=== PATIENT | female | born 1955 | race Caucasian/White ===

== ENCOUNTER 2018-06-23 13:28 | Inpatient (IN) | payer OTHER ==
[~2018-06-23] VITALS: Ht 165.1 cm; Wt 56.0 kg
[2018-06-23 14:30] VITALS: BP 157/64
[2018-06-23] MEDS ORDERED: ASPIRIN325 M2 PO (15:11)
[2018-06-23] MEDS ORDERED: PRINIVIL10 MG PO (15:11)
[2018-06-23] MEDS ORDERED: PROPRANOLOL HCL10 MG PO (15:13)
[2018-06-23] MEDS ORDERED: BUPROPION HYDR150 M5 PO (15:14)
[2018-06-23 15:15] VITALS: BP 157/64
[2018-06-23] MEDS ORDERED: CILOSTAZOL100 MG PO (15:15)
--- NOTE | 2018-06-23 15:15 | NUR ---
A 63, admitted to 5E, under the services of ROGELIO Pierson DO with a diagnosis of Alcohol Withdrawal. Chief complaint is Substance Abuse. Patient arrived via ambulatory from [place]. Monitor applied. Initial assessment completed. Vital signs taken and recorded. ROGELIO PIERSON DO notified of admission to the unit. Orders received. See assessment for past medical history, medications and allergies. Patient and/or family oriented to unit. [address] visitation policy reviewed. Clothing/patient valuable form completed. COLT DAWSON
[2018-06-23] MEDS ORDERED: VITAMIN D33000 UNIT PO (15:17)
[2018-06-23] MEDS ORDERED: LIPITOR80 MG PO (15:18)
[2018-06-23] MEDS ORDERED: ZOLOFT25 MG PO (15:19)
[2018-06-23] MEDS ORDERED: VENTOLIN 02.5 MG/3 M INH (15:21)
--- NOTE | 2018-06-23 15:29 | NUR ---
PATIENT MEETS [facility]. CIWA=22. PATIENT IS GOING TO FOLLOW UP WITH [facility]. SHE HAS A FOLLOW UP APPOINTMENT WITH THEM ON June AT 3:00PM. 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
[2018-06-23 15:33] LABS: BASO % 0.5 % (0.0-1.0); EOS # 0.2 10*3/uL (0.0-0.4); HEMATOCRIT 43.6 % (37.0-47.0); HEMOGLOBIN 15.3 g/dl (12.0-16.0); LYMPH % 34.6 % (27.0-41.0); MEAN CELL VOLUME 100.2 fl (81.0-99.0); MEAN CORPUSCULAR HGB 35.2 pg (27.0-31.0); MEAN CORPUSCULAR HGB CONC 35.1 g/dl (33.0-37.0); MEAN PLATELET VOLUME 7.9 fl (9.6-12.3); MONO # 0.9 10*3/uL (0.1-1.0); NEUT # 4.6 10*3/uL (2.3-7.9); NEUT % 52.6 % (47.0-73.0); PLATELET COUNT AUTOMATED 360 10*3/uL (130-400); RED BLOOD COUNT 4.35 10*6/uL (4.10-5.10); RED CELL DISTRI WIDTH 13.5 % (0-14.5); WHITE BLOOD COUNT 8.7 10*3/uL (4.8-10.8)
[2018-06-23 15:42] LABS: INTERNATIONAL NORM RATIO 0.9 (2.0-3.5)
[2018-06-23 15:48] LABS: ALBUMIN 4.4 gm/dl (3.1-4.5); ALKALINE PHOSPHATASE 87 U/L (45-117); BUN 13 mg/dl (7-24); CHLORIDE 96 mmol/L (98-107); CREATININE 0.79 mg/dL (0.55-1.02); POTASSIUM 4.6 mmol/L (3.5-5.1); SGOT/AST 22 IU/L (3-35); SGPT/ALT 34 U/L (12-78); SODIUM 134 mmol/L (136-145); TOTAL PROTEIN 8.1 gm/dL (6.4-8.2)
[2018-06-23 15:49] LABS: ETHYL ALCOHOL < 3.0 mg/dl (<3)
[2018-06-23 16:00] VITALS: BP 110/76
--- NOTE | 2018-06-23 16:01 | NUR ---
Notified Dr. Ramirez that patients med rec is completed.
[2018-06-23 16:11] LABS: BILIRUBIN NEGATIVE (NEGATIVE); BLOOD NEGATIVE (NEGATIVE); CLARITY CLEAR (CLEAR); COLOR YELLOW (YELLOW); GLUCOSE NEGATIVE (NEGATIVE); KETONE NEGATIVE (NEGATIVE); LEUKO ESTERASE NEGATIVE (NEGATIVE); NITRITE NEGATIVE (NEGATIVE); PH 6.5 (5.0-9.0); SPECIFIC GRAVITY <= 1.005 (1.005-1.030); UROBILINOGEN 0.2 E.U./dl (0.2-1.0)
[2018-06-23 16:18] LABS: BACTERIA 1+
--- NOTE | 2018-06-23 17:37 | NUR ---
Vistaril given to help ease patients anxiety. Will monitor.
--- NOTE | 2018-06-23 18:15 | NUR ---
Vistaril effective. Patient more comforable and states she feels better.
--- NOTE | 2018-06-23 18:15 | NUR ---
Spoke with Dr. Ramirez regarding patients rash on her abdominal area. Skin is intact. See new orders.
--- NOTE | 2018-06-23 19:21 | NUR ---
Patient has home medications in pharmacy.
--- NOTE | 2018-06-23 19:22 | NUR ---
Spoke with Dr. Montero regarding patients home medications being ordered.
[2018-06-23 20:00] VITALS: BP 117/50
--- NOTE | 2018-06-23 21:18 | NUR ---
PATIENT MEDICATED WITH TRAZODONE FOR COMPLAINTS OF INSOMNIA. WILL MONITOR FOR EFFECTIVENESS. CALL LIGHT IN REACH.
[2018-06-24] VITALS: BP 117/42
--- NOTE | 2018-06-24 07:39 | NUR ---
Patient states she feels unsteady and appears unsteady with ambulation. Assisted patient to toilet bed alarm on and patient educated rn observation light use.
[2018-06-24 08:00] VITALS: BP 109/55
[2018-06-24 09:30] VITALS: BP 98/46
[2018-06-24 12:00] VITALS: BP 112/60
[2018-06-24 16:00] VITALS: BP 114/60
--- NOTE | 2018-06-24 16:10 | NUR ---
PATIENT'S AFTERCARE PLAN HAS NOT CHANGED. PATIENT IS SCHEDULED TO GO TO [facility]. 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
--- NOTE | 2018-06-24 18:00 | NUR ---
Contacted Dr. Ramirez regarding patient c/o cough that keeps her awake. See new orders.
[2018-06-24 20:00] VITALS: BP 121/64
--- NOTE | 2018-06-24 20:48 | NUR ---
PT RESTING IN BED. EYES CLOSED. NO DISTRESS NOTED. WILL MONITOR
[2018-06-25] VITALS: BP 101/46
--- NOTE | 2018-06-25 02:30 | NUR ---
NICOTINE PATCH APPLIED PER PT REQUEST.
--- NOTE | 2018-06-25 08:36 | NUR ---
PT RESTING IN BED. EYES CLOSED. NO DISTRESS NOTED. WILL MONITOR
[2018-06-25 09:00] VITALS: BP 110/59
--- NOTE | 2018-06-25 09:56 | NUR ---
PT REQUESTED AND GIVEN VISTARIL FOR ANXIETY AND ROBAXIN FOR MUSCLE ACHES, NECK PAIN WILL MONITOR
--- NOTE | 2018-06-25 10:20 | NUR ---
PT MEDICATED WITH TESSALON PEARLES FOR COUGH WILL MONITOR
[2018-06-25 12:00] VITALS: BP 110/51
--- NOTE | 2018-06-25 13:25 | NUR ---
NICOTROL INHALER GIVEN REQUESTED AAND NICOTINE PATCH REMOVED
[2018-06-25 16:00] VITALS: BP 109/48
--- NOTE | 2018-06-25 17:44 | NUR ---
PT RESTING IN BED. NO DISTRESS NOTED. WILL MONITOR
[2018-06-25 20:00] VITALS: BP 124/57
--- NOTE | 2018-06-25 20:33 | NUR ---
PT RESTING IN BED. ANXIOUS C/O ACHING AND TENSION IN [place] AND BACK. MEDICATED WTIH TRAZADONE PO FOR SLEEP. ROBAXIN PO FOR MUSCLE ACHES AND VISTARIL PO FOR ANXIETY. SEE EMAR. CALL LIGHT IN REACH.
--- NOTE | 2018-06-25 21:30 | NUR ---
RESTING IN BED WITH EYES CLOSED. RESP-EASY AND REGULAR. MEDICATIONS SEEMS TO BE EFFECTIVE. CALL LIGHT IN REACH.
[2018-06-26] VITALS: BP 128/53
--- NOTE | 2018-06-26 00:30 | NUR ---
PT SLEEPING IN BED, AWAKENS EASILY. RESP-EASY AND REGULAR. TOLERATED ROUTINE LIBRIUM PO PER ROUTINE ORDER, SEE EMAR. FOR WITHDRAWAL SYMPTOMS. CALL LIGHT IN REACH. SEE SHIFT ASSESSMENT.
--- NOTE | 2018-06-26 06:10 | NUR ---
TOLERATED ROUTINE MED WITH NO PROBLEM. NO C/O AT THIS TIME. CALL LIGHT IN REACH.
[2018-06-26 06:49] LABS: CREATININE 0.77 mg/dL (0.55-1.02)
[2018-06-26 07:20] LABS: BASO % 0.6 % (0.0-1.0); EOS # 0.2 10*3/uL (0.0-0.4); EOS % 2.2 % (1.0-4.0); HEMATOCRIT 38.5 % (37.0-47.0); HEMOGLOBIN 12.7 g/dl (12.0-16.0); LYMPH # 2.1 10*3/uL (1.3-4.4); LYMPH % 29.2 % (27.0-41.0); MEAN CELL VOLUME 103.8 fl (81.0-99.0); MEAN CORPUSCULAR HGB 34.2 pg (27.0-31.0); MEAN PLATELET VOLUME 8.1 fl (9.6-12.3); MONO # 0.6 10*3/uL (0.1-1.0); MONO % 7.7 % (3.0-9.0); NEUT # 4.3 10*3/uL (2.3-7.9); PLATELET COUNT AUTOMATED 317 10*3/uL (130-400); RED BLOOD COUNT 3.71 10*6/uL (4.10-5.10); RED CELL DISTRI WIDTH 14.2 % (0-14.5); WHITE BLOOD COUNT 7.2 10*3/uL (4.8-10.8)
--- NOTE | 2018-06-26 07:56 | NUR ---
24 HR chart check completed.
[2018-06-26 08:00] VITALS: BP 110/62
--- NOTE | 2018-06-26 09:00 | NUR ---
TEARFUL, RESTING IN BED. EXPRESSES ANXIETY REGARDING POSSIBLE D/C. PATIENT STATES DAUGHTER "JUST CHECKED INTO DETOX AT [facility]". EXPLAINED TO PATIENT NO ORDER FOR D/C AT THIS TIME. PROVIDED WITH VISTARIL FOR ANXIETY. RESPIRATIONS EASY. LUNGS DIMINISHED, CLEAR. PULSE OX 98% RA. SMOKER'S COUGH. TEDS PRESENT AT BEDSIDE BUT NOT CURRENTLY IN USE PER PATIENT REQUEST. CALL LIGHT WITHIN REACH.
--- NOTE | 2018-06-26 11:00 | NUR ---
PATIENT FOUND AT BEDSIDE, UNSTEADY. ASSISTED TO BED AND BED ALARM APPLIED. ENCOURAGED TO CALL FOR ASSIST WHEN OOB
--- NOTE | 2018-06-26 11:30 | NUR ---
DR CARRENO AND HERACLIO HERE TO ASSESS PATIENT AND DISCUSS PLAN OF CARE
[2018-06-26 12:00] VITALS: BP 104/60
--- NOTE | 2018-06-26 14:00 | NUR ---
RESTING IN BED WITH NO DISTRESS NOTED. RESPIRATIONS EASY. CALL LIGHT WITHIN REACH
[2018-06-26 16:00] VITALS: BP 105/53
[2018-06-26 20:00] VITALS: BP 120/68
--- NOTE | 2018-06-26 21:54 | NUR ---
MEDICATED WITH TRAZADONE PER PRN ORDER TO ASSIST WITH SLEEP. ALSO PROVIDED WITH SENNOKOT.
--- NOTE | 2018-06-26 23:30 | NUR ---
ASSUMED CARE OF PT AT THIS TIME. PATIENT ASLEEP IN BED. NO S/S OF DISTRESS NOTED. WILL MONITOR. CALL LIGHT LEFT IN REACH.
[2018-06-27] VITALS: BP 97/54
--- NOTE | 2018-06-27 07:21 | NUR ---
SPOKE TO NOTIFIED OF PATIENT'S REQUEST FOR DULCOLAX. CURRENTLY ORDERED RECTALLY. INSTRUCTED TO ORDER ORALLY PER .
[2018-06-27 08:00] VITALS: BP 111/51
--- NOTE | 2018-06-27 09:18 | NUR ---
MEDICATED WITH DULCOLAX PER PRN ORDER FOR COMPLAINTS OF NO BM X 2 DAYS
--- NOTE | 2018-06-27 10:00 | NUR ---
PATIENT AMBULATED HALLWAY WITH ASSIST OF PA. PATIENT USING HANDRAILS, UNSTEADY. PER PT, FALL HX.
[2018-06-27 12:00] VITALS: BP 100/60
--- NOTE | 2018-06-27 14:00 | NUR ---
DR GOLDSTEIN HERE TO ASSESS PATIENT AND DISCUSS PLAN OF CARE
[2018-06-27 16:00] VITALS: BP 94/53
--- NOTE | 2018-06-27 17:00 | NUR ---
PA ACCOMPANIED PATIENT TO AMBULATE TO VENDING MACHINE
--- NOTE | 2018-06-27 18:00 | NUR ---
ASSISTED TO SHOWER
[2018-06-27 20:00] VITALS: BP 123/67
--- NOTE | 2018-06-27 20:00 | NUR ---
DULCOLAX EFFECTIVE, PATIENT HAD MODERATE BM
--- NOTE | 2018-06-27 22:00 | NUR ---
MEDICATED WITH TRAZADONE TO ASSIST WITH SLEEP
--- NOTE | 2018-06-27 23:30 | NUR ---
ASSUMED CARE FOR THIS PT AT THIS TIME. NO C/O VOICED. CALL LIGHT IN REACH.
[2018-06-28] VITALS: BP 105/47
--- NOTE | 2018-06-28 05:43 | NUR ---
PT'S PULSE OX AT THIS TIME 79% RA, DEEP BREATHING ENCOURAGED. PT SAT INCREASED TO 85%. PT DENIES FEELING SOB. O2 VIA NC APPLIED AT 2LPM. PT ASSISTED TO BR. GAIT UNSTEADY. ASSISTED BACK TO BED. WILL RECHECK PULSE OX.
--- NOTE | 2018-06-28 06:35 | NUR ---
PT PULSE OX 95% AT THIS TIME W/2LNC ON.
[2018-06-28 08:00] VITALS: BP 111/54
--- NOTE | 2018-06-28 09:00 | NUR ---
PT SITTING UP IN BED EATING BREAKFAST AT THIS TIME. PT HAS NO COMPLAINTS. DENIES PAIN AND NO SHORTNESS OF BREATH NOTED AT THIST TIME. PATIENTS KATT GAMEZ WERE APPLIED. PT'S SPEECH IS CLEAR AND APPROPRIATE. BED IS IN LOWEST LOCKED POSITION AND CALL LIGHT WITHIN REACH. WILL CONTINUE TO MONITOR.
--- NOTE | 2018-06-28 13:55 | NUR ---
Discharge instructions reviewed with patient/family. Patient receptive and verbalizes understanding. Follow-up care arranged. Written instructions given to patient/family. LEROY ROSENBERG
== END 2018-06-28 14:12 | disposition home or self-care (01) | DRG 897 ==
LOC: 5E 13:28
PROVIDERS: Family Medicine; ADMIT Internal Medicine
DX: F10.231 Alcohol dependence with withdrawal delirium (principal); F17.200 Nicotine dependence, unspecified, uncomplicated; F12.10 Cannabis abuse, uncomplicated; I73.9 Peripheral vascular disease, unspecified; F32.9 Major depressive disorder, single episode, unspecified; E78.5 Hyperlipidemia, unspecified; I10 Essential (primary) hypertension; J44.9 Chronic obstructive pulmonary disease, unspecified; Z71.6 Tobacco abuse counseling; Z88.0 Allergy status to penicillin; Z79.82 Long term (current) use of aspirin; Z79.899 Other long term (current) drug therapy